=== PATIENT | female | born 1955 | race Caucasian/White ===

== ENCOUNTER 2019-07-10 09:48 | Emergency (ER) | payer BC ==
[2019-07-10 10:34] LABS: Absolute Lymphocytes (CBC) 0.6 K/uL (0.7-4.9); Basophils % 0.5 % (0-1.3); Hematocrit 38.3 % (36.0-45.0); Lymphocytes % 21.9 % (15.3-44.8); MPV 7.6 fL (7.6-11.3); RBC Red Blood Cell Count 4.41 M/uL (3.86-4.86)
[2019-07-10] MEDS ORDERED: ACETAMINOPHEN 325 MG TABLET ONE (10:38)
--- NOTE | 2019-07-10 10:47 | RAD REPORT ---
EXAM DESCRIPTION: RAD - Chest Pa And Lat (2 Views) - 07/10/2019 10:31 am CLINICAL HISTORY: cough, fever Chest pain. COMPARISON: CHEST SINGLE VIEW dated 05/26/2014; CHEST SINGLE VIEW dated 05/23/2013 FINDINGS: Mild reticular opacities are present bilaterally which may represent a viral pneumonitis o r bronchitis. No focal consolidation typical of pneumonia seen. The heart is normal in size. No displ aced fractures. Postop clips are seen right breast and right axilla.
[2019-07-10 11:02] LABS: ALT/SGPT 28 U/L (12-78); AST/SGOT 26 U/L (15-37); Albumin 3.6 g/dL (3.4-5.0); Alkaline Phosphatase 62 U/L (45-117); BUN Blood Urea Nitrogen 17 mg/dL (7-18); Bicarbonate 23 mmol/L (21-32); Bilirubin Total 0.3 mg/dL (0.2-1.0); Glucose Level 80 mg/dL (74-106); Potassium 4.7 mmol/L (3.5-5.1); Protein, Total 7.2 g/dL (6.4-8.2); Sodium Level 140 mmol/L (136-145); Troponin (Emerg Dept Use Only) < 0.02 ng/mL (0.0-0.045)
[2019-07-10 11:23] LABS: Urine White Blood Cell Casts OK
[2019-07-10 11:24] LABS: Anisocytosis 1+; Blood Morphology Comment NOTED (NOT SEEN); Platelet Estimate DECR
--- NOTE | 2019-07-10 12:18 | EDPHYS ---
Physician Documentation [facility] Name: Meg Ferrer Age: 64 yrs Sex: Female : 1955 Arrival Date: 07/10/2019 Time: 09:51 Bed 8 Private MD: ED Physician Tin Arshad HPI: 07/10 10:31 This 64 yrs old Female presents to ER via Ambulatory with complaints of jmm Congestion, Cough. 10:31 The patient or guardian reports cough. Onset: The symptoms/episode began/occurred jmm gradually, 2 week(s) ago. Modifying factors: The symptoms are alleviated by nothing. abx. Associated signs and symptoms: Pertinent positives: fever. Modifying factors: The patient symptoms are alleviated by the patient symptoms are aggravated by nothing. This is a 64 year old female with a history of liver transplant that presents to the ED with complaints cough, fever, congestion beginning 2 weeks ago. Symptoms were alleviated with amoxicillin, but have returned. Denies vomiting, denies abdominal pain. . Historical: - Allergies: 10:12 No Known Allergies; iw - Home Meds: 10:12 amlodipine 5 mg tab 1 tab once daily [Active]; gabapentin 800 mg oral tab 1 tab 3 times iw per day [Active]; Mavyret 100-40 mg [Active]; pantoprazole 40 mg oral TbEC 1 tab once daily [Active]; sertraline 50 mg oral tab 1 tab once daily [Active]; tacrolimus 1 mg oral cap every 12 hours [Active]; tramadol 50 mg Oral tab every 8 hours [Active]; trazodone 50 mg Oral tab nightly [Active]; - PMHx: 12:39 tachycardia; Hepatitis; Cirrhosis; esophageal varices; sg - PSHx: 10:12 esophageal scope; Tubal ligation; Liver transplant; Hernia repair; iw - Immunization history:: Adult Immunizations up to date. - Social history:: Smoking status: Patient reports the use of cigarette tobacco products, smokes one-half pack cigarettes per day. - Ebola Screening: : Patient negative for fever greater than or equal to 101.5 degrees Fahrenheit, and additional compatible Ebola Virus Disease symptoms Patient denies exposure to infectious person Patient denies travel to an Ebola-affected area in the 21 days before illness onset. ROS: 10:38 Abdomen/GI: Negative for abdominal pain, nausea, vomiting, diarrhea, and constipation, [facility] Back: Negative for injury and pain. 10:38 Constitutional: Positive for body aches, fever. 10:38 Respiratory: Positive for cough. 10:38 All other systems are negative. Exam: 10:38 Constitutional: This is a well developed, well nourished patient who is awake, alert, jmm and in no acute distress. Head/Face: atraumatic. Eyes: EOMI, no conjunctival erythema appreciated ENT: Moist Mucus Membranes Neck: Trachea midline, Supple Chest/axilla: Normal chest wall appearance and motion. Cardiovascular: Regular rate and rhythm. No edema appreciated Respiratory: Normal respirations, no respiratory distress appreciated Abdomen/GI: Non distended, soft Back: Normal ROM Skin: General appearance color normal MS/ Extremity: Moves all extremities, no obvious deformities appreciated, no edema noted to the lower extremities Neuro: Awake and alert, normal gait Psych: Behavior is normal, Mood is normal, Patient is cooperative and pleasant Vital Signs: 10:12 BP 128 / 73; Pulse 92; Resp 16; Temp 97.9; Pulse Ox 98% on R/A; Weight 56.7 kg; Height iw 5 ft. 2 in. (157.48 cm); Pain 5/10; 12:20 BP 124 / 72; Pulse 87; Resp 17; Temp 97.9; Pulse Ox 99% on R/A; Pain 3/10; sg 10:12 Body Mass Index 22.86 (56.70 kg, 157.48 cm) iw MDM: 10:07 Patient medically screened. [facility] 12:15 Data reviewed: vital signs, nurses notes. Counseling: I had a detailed discussion with [facility] the patient and/or guardian regarding: the historical points, exam findings, and any diagnostic results supporting the discharge/admit diagnosis, lab results, radiology results, the need for outpatient follow up, to return to the emergency department if symptoms worsen or persist or if there are any questions or concerns that arise at home. ED course: Patient is alert and non toxic in appearance in the ED. Patient will be covered with oral abx due to the patient's immunosupressed state as well as concerns for bacterial bronchitis. Patient advised to follow up with her pcp and is otherwise given strict return precautions. patient understood and agrees with the plan of care. . 07/10 09:54 Order name: Flu; Complete Time: 10:53 [facility] 07/10 09:54 Order name: Strep; Complete Time: 10:27 [facility] 07/10 10:11 Order name: CBC with Diff; Complete Time: 11:30 [facility] 07/10 10:11 Order name: CMP; Complete Time: 11:12 [facility] 07/10 10:11 Order name: Lactate; Complete Time: 10:52 [facility] 07/10 10:11 Order name: Procalcitonin; Complete Time: 11:12 [facility] 07/10 10:11 Order name: EKG - Nurse/Tech; Complete Time: 11:03 [facility] 07/10 10:11 Order name: Saline Lock; Complete Time: 10:29 [facility] 07/10 10:11 Order name: Troponin (emerg Dept Use Only); Complete Time: 11:12 [facility] 07/10 10:12 Order name: Chest Pa And Lat (2 Views) XRAY; Complete Time: 10:52 [facility] 07/10 10:25 Order name: Throat Culture [facility] 07/10 10:44 Order name: CBC Smear Scan; Complete Time: 11:30 EDMS Administered Medications: 10:45 Drug: Tylenol 650 mg Route: PO; sg Disposition: 15:13 Co-signature as Attending Physician, Tin Arshad MD. rn Disposition: 07/10/19 12:17 Discharged to Home. Impression: Acute bronchitis. - Condition is Stable. - Discharge Instructions: Acute Bronchitis, Adult. - Prescriptions for Levaquin 750 mg Oral Tablet - take 1 tablet by ORAL route once daily for 10 days; 10 tablet. promethazine- DM - take 5 milliliter by ORAL route every 4-6 hours; 120 milliliter. - Medication Reconciliation Form, Thank You Letter, Antibiotic Education, Prescription Opioid Use form. - Follow up: Private Physician; When: 2 - 3 days; Reason: Recheck today's complaints, Continuance of care, Re-evaluation by your physician. Signatures: Dispatcher [employer] EDMerritt Salmon RN RN sg Mickail, Joel, PA PA jmm Williams, Irene, RN RN iw Nieto, Roman, MD MD diesel service journeyman: (The following items were deleted from the chart) 12:31 12:17 07/10/2019 12:17 Discharged to Home. Impression: Acute bronchitis. Condition is iw Stable. Forms are Medication Reconciliation Form, Thank You Letter, Antibiotic Education, Prescription Opioid Use. Follow up: Private Physician; When: 2 - 3 days; Reason: Recheck today's complaints, Continuance of care, Re-evaluation by your physician. samuel
--- NOTE | 2019-07-10 12:18 | ER ---
Nurse's Notes [facility] Name: Meg Ferrer Age: 64 yrs Sex: Female : 1955 Arrival Date: 07/10/2019 Time: 09:51 Bed 8 Private MD: Diagnosis: Acute bronchitis Presentation: 07/10 10:03 Presenting complaint: Patient states: cough, chest congestion X 1 week, also has body iw aches and fever yesterday. Transition of care: patient was not received from another setting of care. Onset of symptoms was July 03, 2019. Risk Assessment: Do you want to hurt yourself or someone else? Patient reports no desire to harm self or others. Initial Sepsis Screen: Does the patient meet any 2 criteria? No. Patient's initial sepsis screen is negative. Does the patient have a suspected source of infection? No. Patient's initial sepsis screen is negative. Care prior to arrival: None. 10:03 Method Of Arrival: Ambulatory iw 10:03 Acuity: AVINASH 3 iw Historical: - Allergies: 10:12 No Known Allergies; iw - Home Meds: 10:12 amlodipine 5 mg tab 1 tab once daily [Active]; gabapentin 800 mg oral tab 1 tab 3 times iw per day [Active]; Mavyret 100-40 mg [Active]; pantoprazole 40 mg oral TbEC 1 tab once daily [Active]; sertraline 50 mg oral tab 1 tab once daily [Active]; tacrolimus 1 mg oral cap every 12 hours [Active]; tramadol 50 mg Oral tab every 8 hours [Active]; trazodone 50 mg Oral tab nightly [Active]; - PMHx: 12:39 tachycardia; Hepatitis; Cirrhosis; esophageal varices; sg - PSHx: 10:12 esophageal scope; Tubal ligation; Liver transplant; Hernia repair; iw - Immunization history:: Adult Immunizations up to date. - Social history:: Smoking status: Patient reports the use of cigarette tobacco products, smokes one-half pack cigarettes per day. - Ebola Screening: : Patient negative for fever greater than or equal to 101.5 degrees Fahrenheit, and additional compatible Ebola Virus Disease symptoms Patient denies exposure to infectious person Patient denies travel to an Ebola-affected area in the 21 days before illness onset. Screenin:12 Abuse screen: Denies threats or abuse. Denies injuries from another. Nutritional sg screening: No deficits noted. Tuberculosis screening: No symptoms or risk factors identified. Never had TB. Fall Risk None identified. Assessment: 10:12 General: Appears in no apparent distress. well groomed, well developed, well nourished, sg Behavior is calm, cooperative, appropriate for age. Pain: Denies pain. Neuro: Level of Consciousness is awake, alert, obeys commands, Oriented to person, place, time, Housekeeping Assistant are equal bilaterally Speech is normal, Facial symmetry appears normal. Cardiovascular: Capillary refill is brisk in bilateral fingers Patient's skin is warm and dry. Chest pain is denied. Respiratory: Airway is patent Respiratory effort is even, unlabored, Respiratory pattern is regular, symmetrical, Breath sounds are coarse. GI: Abdomen is round non-distended. : No signs and/or symptoms were reported regarding the genitourinary system. EENT: No signs and/or symptoms were reported regarding the EENT system. Derm: Skin is pink, warm \T\ dry. Musculoskeletal: Circulation, motion, and sensation intact. Range of motion: intact in all extremities. Vital Signs: 10:12 BP 128 / 73; Pulse 92; Resp 16; Temp 97.9; Pulse Ox 98% on R/A; Weight 56.7 kg; Height iw 5 ft. 2 in. (157.48 cm); Pain 5/10; 12:20 BP 124 / 72; Pulse 87; Resp 17; Temp 97.9; Pulse Ox 99% on R/A; Pain 3/10; sg 10:12 Body Mass Index 22.86 (56.70 kg, 157.48 cm) ED Course: 09:51 Patient arrived in ED. mr 09:53 Fracisco Mendez PA is PHCP. jmm 09:53 Tin Arshad MD is Attending Physician. [facility] 10:00 Flu and/or RSV swab sent to lab. Strep swab sent to lab. sg 10:04 Triage completed. iw 10:14 Arm band placed on. iw 10:20 Patient has correct armband on for positive identification. Bed in low position. Call sg light in reach. Pulse ox on. NIBP on. 10:20 Initial lab(s) drawn, by me, sent to lab. Inserted saline lock: 20 gauge in right sg forearm, using aseptic technique. Blood collected. 10:30 Chest Pa And Lat (2 Views) XRAY In Process Unspecified. EDMS 10:50 Merritt Hills, RN is Primary Nurse. sg 11:16 EKG done, by donor center technician. reviewed by Fracisco RUDOLPH. at1 12:25 No provider procedures requiring assistance completed. IV discontinued, intact, sg bleeding controlled, No redness/swelling at site. Pressure dressing applied. Administered Medications: 10:45 Drug: Tylenol 650 mg Route: PO; sg Outcome: 12:17 Discharge ordered by . jmabdirahman 12:25 Discharged to home ambulatory, with family. sg 12:25 Condition: good 12:25 Discharge instructions given to patient, Instructed on discharge instructions, follow up and referral plans. medication usage, safety practices, Demonstrated understanding of instructions, follow-up care, Prescriptions given X 2, promethazine and levaquin 12:31 Patient left the ED. iw Signatures: Dispatcher [employer] EDMS Merritt Hills, RN RN Fracisco Chavez PA PA jmm Rivera, Mary mr Williams, Irene, RN RN iw Gonzales, Amanda, bow stapler EKG Tat1
[2019-07-10 12:37] VITALS: BP 128/73; TEMP 97.9; O2SAT 98
--- NOTE | 2019-07-11 14:33 | EKG ---
Test Date: 2019-07-10 Test Time: 10:59:51 Textile Machinery Sales Representative: LÓPEZ MEASUREMENT RESULTS: Intervals: Rate: 75 NC: 156 QRSD: 86 QT: 404 QTc: 451 [place]: P: 51 NC: 156 QRS: 66 T: 74 INTERPRETIVE STATEMENTS: Normal sinus rhythm Normal ECG Compared to ECG 05/26/2014 13:52:11 No significant changes Electronically Signed On 07-11-19 14:31:32 AUTO INSPECTOR by Matthieu He
== END 2019-07-10 12:31 | disposition home or self-care (01) ==
LOC: ER 09:48
DX: J20.9 Acute bronchitis, unspecified (principal); K74.60 Unspecified cirrhosis of liver; F17.210 Nicotine dependence, cigarettes, uncomplicated; Z94.4 Liver transplant status
CPT/HCPCS: 36415; 71046; 80053; 83605; 84145; 84484; 85025; 87070; 87081; 87804; 93005; 99284

== ENCOUNTER 2020-09-28 10:02 | Emergency (ER) | payer BC, SELFPAY ==
[2020-09-28 11:27] LABS: Absolute Lymphocytes (CBC) 0.7 K/uL (0.7-4.9); Basophils % 0.8 % (0-1.3); Lymphocytes % 15.5 % (15.3-44.8); MPV 7.3 fL (7.6-11.3); RBC Red Blood Cell Count 4.51 M/uL (3.86-4.86)
[2020-09-28] MEDS ORDERED: MORPHINE 4 MG/ML SYR ONE (11:42)
[2020-09-28] MEDS ORDERED: ONDANSETRON 4 MG/2 ML VIAL ONE (11:42)
[2020-09-28 11:55] LABS: Albumin 4.2 g/dL (3.4-5.0); Bilirubin Direct 0.1 mg/dL (0-0.2); Bilirubin Total 0.3 mg/dL (0.2-1.0); Protein, Total 8.3 g/dL (6.4-8.2)
[2020-09-28 12:04] LABS: Potassium 4.3 mmol/L (3.5-5.1)
[2020-09-28] MEDS ORDERED: NA CHLORIDE 0.9% 1,000 ML ONE (12:27)
--- NOTE | 2020-09-28 13:01 | RAD REPORT ---
EXAM DESCRIPTION: CT - Abdomen Pelvis W Contrast - 09/28/2020 12:43 pm CLINICAL HISTORY: diarrhea;Abd pain History of liver cancer and cirrhosis with liver transplant COMPARISON: No comparisons TECHNIQUE: Biphasic, helical CT imaging of the abdomen and pelvis was performed following 100 ml non -ionic IV contrast. No oral contrast administered. All CT scans are performed using dose optimization technique as appropriate and may include automated exposure control or mA/KV adjustment according to patient size. FINDINGS: No suspicious findings in the lung bases. The liver appears enlarged ; however, there is no prior imaging to evaluate the baseline appearance o f the liver at the time of transplant. No focal or suspicious lesion of the liver parenchyma. No port al vein thrombus. Spleen is upper normal in size. No acute pancreatic process. Gallbladder is absent. Intrahepatic and extrahepatic biliary tree dilatation noted. Again, baseline appearance for the patient is unknown. Th is could be the reservoir effect that occur is when the gallbladder has been removed. Common duct sto krysta can be occult. No duodenal or pancreatic mass identifiable. Correlation is needed with any clinic al or laboratory findings suggesting biliary obstruction. Symmetric renal function is seen with no hydronephrosis or suspicious renal mass. No pyelonephritis o r acute parenchymal process. Fullness of the left collecting system is present but not believed to be obstruction. No adrenal abnormalities. Mostly contracted urinary bladder shows no suspicious finding . Prominent enhancing veins seen adjacent to a normal for age sized uterus. No suspicion for an ovari an abnormality. Clarke of the fundus and body of the stomach are prominent due to absent content. This is probably per istalsis affect rather than gastric wall mass or thickening. No duodenal acute finding. Small bowels are prominent and fluid-filled. There is mild enhancement of the small bowel clarke. Nonobstructive en teritis would be a primary consideration. Appendix is normal. No dilated colon or colon wall thickeni ng or mass identifiable. No free air or pneumatosis. There is a small amount of free fluid within the peritoneal cavity. No m ass or bulky lymphadenopathy. Soft tissue nodularity in the subcutaneous fat near the umbilicus is pr obably postsurgical change. No suspicious bony findings. Degenerative changes are present. IMPRESSION: No bowel obstruction, free air or surgically emergent finding. Prominent bowel loops without obstruction or mass. Small amount of free intraperitoneal fluid is pres ent. Findings may reflect a nonspecific gastroenteritis. Liver appears enlarged but the baseline appearance after transplant is not known. No suspicious liver parenchymal lesion and no portal vein thrombus. Biliary tree dilatation with baseline appearance on known. This is probably the reservoir effect give n the absence of the gallbladder. Correlation is needed with any clinical or laboratory findings for biliary obstruction.
--- NOTE | 2020-09-28 14:34 | ER ---
Nurse's Notes [facility] Name: Meg Ferrer Age: 65 yrs Sex: Female : 1955 Arrival Date: 09/28/2020 Time: 10:05 Bed 23 Private MD: Diagnosis: Nausea and vomiting;Diarrhea, unspecified;Gastroenteritis Presentation: 09/28 10:09 Chief complaint: Patient states: diarrhea for months now, gradually getting worse, ca1 feeling weak and tired. Vomiting x 3 days. Reports abdl pain and cramping. Denies fever. Coronavirus screen: Client denies travel out of the [place] in the last 14 days. diarrhea, nausea, vomiting. Client presents with at least one sign or symptom that may indicate coronavirus-19. Standard/surgical mask placed on the client. Provider contacted for isolation considerations. Ebola Screen: Patient negative for fever greater than or equal to 101.5 degrees Fahrenheit, and additional compatible Ebola Virus Disease symptoms Patient denies exposure to infectious person. Patient denies travel to an Ebola-affected area in the 21 days before illness onset. No symptoms or risks identified at this time. Initial Sepsis Screen: Does the patient meet any 2 criteria? No. Patient's initial sepsis screen is negative. Does the patient have a suspected source of infection? No. Patient's initial sepsis screen is negative. Risk Assessment: Do you want to hurt yourself or someone else? Patient reports no desire to harm self or others. Onset of symptoms was September 28, 2020. 10:09 Method Of Arrival: Ambulatory ca1 10:09 Acuity: AVINASH 3 ca1 Triage Assessment: 10:24 General: Appears in no apparent distress. comfortable, Behavior is calm, cooperative, ca1 appropriate for age. Pain: Complains of pain in abdomen Pain currently is 5 out of 10 on a pain scale. Quality of pain is described as crampy, Pain began 2-3 days ago. Is intermittent. EENT: No signs and/or symptoms were reported regarding the EENT system. Neuro: Level of Consciousness is awake, alert, obeys commands, Oriented to person, place, time, situation. Cardiovascular: Heart tones S1 S2 present Capillary refill < 3 seconds Patient's skin is warm and dry. Respiratory: Airway is patent Respiratory effort is even, unlabored, Respiratory pattern is regular, symmetrical, Breath sounds are clear bilaterally. GI: Abdomen is flat, non-distended, Bowel sounds present X 4 quads. Abd is soft X 4 quads Abdomen is tender to palpation X 4 quads. Reports diarrhea, nausea, vomiting. : Derm: Skin is intact, is healthy with good turgor, Skin is pink, warm \T\ dry. Musculoskeletal: Circulation, motion, and sensation intact. Capillary refill < 3 seconds. Historical: - Allergies: 10:24 No Known Allergies; ca1 - PMHx: 10:24 Cirrhosis; esophageal varices; Hepatitis; Tachycardia; liver Ca; Hypertension; ca1 - PSHx: 10:24 esophageal scope; Tubal ligation; Liver transplant; Hernia repair; ca1 - Immunization history:: Adult Immunizations not up to date, Flu vaccine is not up to date. - Social history:: Smoking status: Patient reports the use of cigarette tobacco products, denies chronic smoking, but will smoke occasionally. Screenin:26 Abuse screen: Denies threats or abuse. Denies injuries from another. Nutritional ca1 screening: No deficits noted. Tuberculosis screening: No symptoms or risk factors identified. Fall Risk IV access (20 points). Assessment: 10:26 Reassessment: see triage notes. GI: Abdomen is flat, non-distended, Bowel sounds ca1 present X 4 quads. Abd is soft X 4 quads Abdomen is tender to palpation X 4 quads. 11:28 Reassessment: Patient appears in no apparent distress at this time. Patient is alert, ca1 oriented x 3, equal unlabored respirations, skin warm/dry/pink. Pt BM x 3. reports nausea. Notified Dr. Upton, meds ordered and given. 12:30 Reassessment: Patient appears in no apparent distress at this time. Patient and/or ca1 family updated on plan of care and expected duration. Pain level reassessed. Patient is alert, oriented x 3, equal unlabored respirations, skin warm/dry/pink. 13:12 Reassessment: Patient appears in no apparent distress at this time. Patient and/or ca1 family updated on plan of care and expected duration. Pain level reassessed. Patient is alert, oriented x 3, equal unlabored respirations, skin warm/dry/pink. Vital Signs: 10:09 BP 135 / 79; Pulse 93; Resp 16 S; Temp 98(O); Pulse Ox 100% on R/A; Weight 52.62 kg ca1 (R); Height 5 ft. 3 in. (160.02 cm) (R); Pain 5/10; 11:28 BP 142 / 86; Pulse 90; Resp 16 S; Pulse Ox 100% on R/A; ca1 12:30 BP 141 / 81; Pulse 89; Resp 16 S; Pulse Ox 100% on R/A; ca1 10:09 Body Mass Index 20.55 (52.62 kg, 160.02 cm) ca1 ED Course: 10:05 Patient arrived in ED. as 10:21 Gabrielle Ceja, GIORGI is Primary Nurse. ca1 10:22 Ga Upton MD is Attending Physician. kdr 10:23 Triage completed. ca1 10:24 Arm band placed on right wrist. ca1 10:26 Patient has correct armband on for positive identification. Placed in gown. Bed in low ca1 position. Call light in reach. Side rails up X2. Pulse ox on. NIBP on. Warm blanket given. 11:05 Lab(s) recollected, by me, sent to lab. Inserted saline lock: 22 gauge in left wrist, kj1 using aseptic technique. Blood collected. 12:43 CT Abd/Pelvis - IV Contrast Only In Process Unspecified. EDMS 13:16 Fracisco Mendez PA is PHCP. [facility] 14:32 Fredo Santillan MD is Referral Physician. kdr 14:55 No provider procedures requiring assistance completed. IV discontinued, intact, aa5 bleeding controlled, No redness/swelling at site. Pressure dressing applied. Administered Medications: 11:25 Drug: Zofran (Ondansetron) 4 mg Route: IVP; Site: left forearm; ca1 12:10 Follow up: Response: No adverse reaction; Nausea is decreased ca1 11:28 Drug: morphine 4 mg {Note: rass 0.} Route: IVP; Site: right forearm; ca1 12:10 Follow up: Response: No adverse reaction; Pain is decreased; RASS: Alert and Calm (0) ca1 12:10 Drug: NS 0.9% 1000 ml Route: IV; Rate: 1 bolus; Site: left forearm; ca1 Outcome: 14:33 Discharge ordered by . kdr 14:55 Discharged to home ambulatory. aa5 14:55 Condition: stable 14:55 Discharge instructions given to patient, Instructed on discharge instructions, follow up and referral plans. medication usage, Demonstrated understanding of instructions, follow-up care, medications, Prescriptions given X 2. 14:58 Patient left the ED. aa5 Signatures: Dispatcher [employer] EDMS Ga Upton MD MD kdr Mickail, Joel, PA PA jmm Martinez, Amelia as Calderon, Audri, RN RN aa5 Gabrielle Ceja RN RN ca1 Jackson, Kandis 1
--- NOTE | 2020-09-28 14:34 | EDPHYS ---
Physician Documentation [facility] Name: Meg Ferrer Age: 65 yrs Sex: Female : 1955 Arrival Date: 09/28/2020 Time: 10:05 Bed 23 Private MD: ED Physician Ga Upton HPI: 09/28 15:09 This 65 yrs old Female presents to ER via Ambulatory with complaints of kdr Vomiting/Diarrhea, Abd Pain > 50 y/o. 15:09 The patient presents to the emergency department with nausea, that is mild, that is kdr moderate, vomiting, that is intermittent, diarrhea, that is intermittent, abdominal pain, of the abdomen diffusely, described as achy, dull, waxing and waning. Onset: The symptoms/episode began/occurred gradually, Diarrhea has been ongoing for several months but the vomiting. Historical: - Allergies: 10:24 No Known Allergies; ca1 - PMHx: 10:24 Cirrhosis; esophageal varices; Hepatitis; Tachycardia; liver Ca; Hypertension; ca1 - PSHx: 10:24 esophageal scope; Tubal ligation; Liver transplant; Hernia repair; ca1 - Immunization history:: Adult Immunizations not up to date, Flu vaccine is not up to date. - Social history:: Smoking status: Patient reports the use of cigarette tobacco products, denies chronic smoking, but will smoke occasionally. ROS: 15:52 Constitutional: Negative for fever, chills, and weight loss, Eyes: Negative for injury, kdr pain, redness, and discharge, ENT: Negative for injury, pain, and discharge, Neck: Negative for injury, pain, and swelling, Cardiovascular: Negative for chest pain, palpitations, and edema, Respiratory: Negative for shortness of breath, cough, wheezing, and pleuritic chest pain, Back: Negative for injury and pain, : Negative for injury, bleeding, discharge, and swelling, MS/Extremity: Negative for injury and deformity, Skin: Negative for injury, rash, and discoloration, Neuro: Negative for headache, weakness, numbness, tingling, and seizure activity. Psych: Negative for depression, anxiety, suicide ideation, homicidal ideation, and hallucinations, Allergy/Immunology: Negative for hives, rash, and allergies, Endocrine: Negative for neck swelling, polydipsia, polyuria, polyphagia, and marked weight changes, Hematologic/Lymphatic: Negative for swollen nodes, abnormal bleeding, and unusual bruising. 15:52 Abdomen/GI: Positive for nausea, vomiting, and diarrhea. Exam: 15:52 Constitutional: This is a well developed, well nourished patient who is awake, alert, kdr and in no acute distress. Head/Face: Normocephalic, atraumatic. Eyes: Pupils equal round and reactive to light, extra-ocular motions intact. Lids and lashes normal. Conjunctiva and sclera are non-icteric and not injected. Cornea within normal limits. Periorbital areas with no swelling, redness, or edema. Neck: Trachea midline, no thyromegaly or masses palpated, and no cervical lymphadenopathy. Supple, full range of motion without nuchal rigidity, or vertebral point tenderness. No Meningismus. Chest/axilla: Normal chest wall appearance and motion. Nontender with no deformity. No lesions are appreciated. Cardiovascular: Regular rate and rhythm with a normal S1 and S2. No gallops, murmurs, or rubs. Normal PMI, no JVD. No pulse deficits. Respiratory: Lungs have equal breath sounds bilaterally, clear to auscultation and percussion. No rales, rhonchi or wheezes noted. No increased work of breathing, no retractions or nasal flaring. Back: No spinal tenderness. No costovertebral tenderness. Full range of motion. Skin: Warm, dry with normal turgor. Normal color with no rashes, no lesions, and no evidence of cellulitis. MS/ Extremity: Pulses equal, no cyanosis. Neurovascular intact. Full, normal range of motion. Neuro: Awake and alert, GCS 15, oriented to person, place, time, and situation. Cranial nerves II-XII grossly intact. Motor strength 5/5 in all extremities. Sensory grossly intact. Cerebellar exam normal. Normal gait. Psych: Awake, alert, with orientation to person, place and time. Behavior, mood, and affect are within normal limits. 15:52 Abdomen/GI: Inspection: abdomen appears normal, Bowel sounds: active. Vital Signs: 10:09 BP 135 / 79; Pulse 93; Resp 16 S; Temp 98(O); Pulse Ox 100% on R/A; Weight 52.62 kg ca1 (R); Height 5 ft. 3 in. (160.02 cm) (R); Pain 5/10; 11:28 BP 142 / 86; Pulse 90; Resp 16 S; Pulse Ox 100% on R/A; ca1 12:30 BP 141 / 81; Pulse 89; Resp 16 S; Pulse Ox 100% on R/A; ca1 10:09 Body Mass Index 20.55 (52.62 kg, 160.02 cm) ca1 MDM: 14:33 Patient medically screened. kdr 15:59 Data reviewed: vital signs, nurses notes, lab test result(s), radiologic studies. kdr Counseling: I had a detailed discussion with the patient and/or guardian regarding: the historical points, exam findings, and any diagnostic results supporting the discharge/admit diagnosis, lab results, radiology results, the need for outpatient follow up. 09/28 10:50 Order name: Basic Metabolic Panel ca1 09/28 10:50 Order name: CBC with Diff ca1 09/28 10:50 Order name: Hepatic Function ca1 09/28 10:50 Order name: Lipase ca1 09/28 10:51 Order name: Basic Metabolic Panel; Complete Time: 12:23 EDPA 09/28 10:51 Order name: CBC with Automated Diff; Complete Time: 12:23 EDMS 09/28 10:51 Order name: Liver (Hepatic) Function; Complete Time: 12:23 EDMS 09/28 10:51 Order name: Lipase; Complete Time: 12:23 EDMS 09/28 12:23 Order name: Stool Culture [facility] 09/28 12:23 Order name: Ova And Parasites kdr 09/28 12:23 Order name: Occult Blood; Complete Time: 16:02 kdr 09/28 12:23 Order name: Fecal Leukocyte Stain; Complete Time: 16:02 kdr 09/28 12:24 Order name: Stool Culture EDPA 09/28 12:24 Order name: Ova and Parasites EDPA 09/28 10:50 Order name: IV Saline Lock; Complete Time: 11:12 ca1 09/28 10:50 Order name: Labs collected and sent; Complete Time: 11:12 ca1 09/28 12:25 Order name: CT Abd/Pelvis - IV Contrast Only; Complete Time: 13:14 kdr Administered Medications: 11:25 Drug: Zofran (Ondansetron) 4 mg Route: IVP; Site: left forearm; ca1 12:10 Follow up: Response: No adverse reaction; Nausea is decreased ca1 11:28 Drug: morphine 4 mg {Note: rass 0.} Route: IVP; Site: right forearm; ca1 12:10 Follow up: Response: No adverse reaction; Pain is decreased; RASS: Alert and Calm (0) ca1 12:10 Drug: NS 0.9% 1000 ml Route: IV; Rate: 1 bolus; Site: left forearm; ca1 Disposition: 09/28/20 14:33 Discharged to Home. Impression: Nausea and vomiting, Diarrhea, unspecified, Gastroenteritis. - Condition is Stable. - Discharge Instructions: Nausea and Vomiting, Adult, [id number], Abdominal Pain, Adult, [id number], Diarrhea, Adult, [id number]. - Prescriptions for Zofran 4 mg Oral Tablet - take 1 tablet by ORAL route every 4-6 hours As needed; 16 tablet. Lomotil 2.5- 0.025 mg Oral Tablet - take 1 tablet by ORAL route every 6 hours As needed; 20 tablet. Tramadol 50 mg Oral Tablet - take 1 tablet by ORAL route every 8 hours as needed; 12 tablet. - Medication Reconciliation Form, Thank You Letter form. - Follow up: Private Physician; When: 2 - 3 days; Reason: If symptoms return, Further diagnostic work-up, Recheck today's complaints, Continuance of care, Re-evaluation by your physician. Follow up: Fredo Santillan MD; When: 2 - 3 days; Reason: If symptoms return, Further diagnostic work-up, Recheck today's complaints, Continuance of care, Re-evaluation by your physician. - Problem is an ongoing problem. - Symptoms have improved. Signatures: Dispatcher [employer] EDPA Ga Upton MD MD [facility] Nadine Alberts RN RN aa5 Gabrielle Ceja RN RN ca1 Corrections: (The following items were deleted from the chart) 14:58 14:33 09/28/2020 14:33 Discharged to Home. Impression: Nausea and vomiting; Diarrhea, aa5 unspecified; Gastroenteritis. Condition is Stable. Forms are Medication Reconciliation Form, Thank You Letter, Antibiotic Education, Prescription Opioid Use. Follow up: Private Physician; When: 2 - 3 days; Reason: If symptoms return, Further diagnostic work-up, Recheck today's complaints, Continuance of care, Re-evaluation by your physician. Follow up: Fredo Santillan; When: 2 - 3 days; Reason: If symptoms return, Further diagnostic work-up, Recheck today's complaints, Continuance of care, Re-evaluation by your physician. Problem is an ongoing problem. Symptoms have improved. kdr
[2020-09-28 15:06] VITALS: TEMP 98; O2SAT 100
[2020-09-28 15:08] VITALS: BP 141/81
== END 2020-09-28 14:58 | disposition home or self-care (01) ==
LOC: ER 10:02
DX: K52.9 Noninfective gastroenteritis and colitis, unspecified (principal); K74.60 Unspecified cirrhosis of liver; F17.210 Nicotine dependence, cigarettes, uncomplicated; I10 Essential (primary) hypertension; Z85.05 Personal history of malignant neoplasm of liver; Z94.4 Liver transplant status
CPT/HCPCS: 87045; 85025; 80048; 36415; 89055; 87177; 82274; 80076; 87046; 87209; 83690; 74177; Q9967; J7030; J2405; 99284

== ENCOUNTER → 2023-09-03 | Emergency (ER) | payer OTHER ==
[~2023-09-03] MED LIST: HYDROCODONE/APAP 7.5/325 MG TAB ONE
--- NOTE | 2023-09-03 16:46 | RAD REPORT ---
EXAM DESCRIPTION: RAD - Ribs Left - 09/03/2023 3:45 pm CLINICAL HISTORY: PAIN COMPARISON: Chest Pa And Lat (2 Views) dated 07/10/2019 TECHNIQUE: Left ribs, 3 views. FINDINGS: No displaced rib fracture is evident. No aggressive rib lesion. No underlying pneumothorax, effusion, infiltrate or pulmonary contusion. IMPRESSION: Negative left rib series.
--- NOTE | 2023-09-03 16:50 | EDPHYS ---
Physician Documentation [facility] Name: Meg Ferrer Age: 68 yrs Sex: Female : 1955 Arrival Date: 09/03/2023 Time: 14:12 Bed 12 Private MD: Sharron Silva ED Physician Eric Zambrano HPI: 09/02 14:45 This 68 yrs old Female presents to ER via Ambulatory with complaints of Fall Injury. sb4 14:45 Patient states that yesterday she fell and hit her left side on a metal table. She sb4 complains of pain and bruising to her upper left ribs. States any movement or breath hurts. Denies any other trauma. Has not taken anything for the pain today. Historical: - Allergies: 14:41 No Known Drug Allergies; ph - Home Meds: 17:00 amlodipine 5 mg tab 1 tab once daily [Active]; gabapentin 800 mg Oral tab 1 tab 3 times tl4 per day [Active]; tacrolimus 5 mg oral capsule 2 caps every 12 hours [Active]; Mavyret 100-40 mg [Active]; - PMHx: 14:41 Cirrhosis; esophageal varices; Hepatitis; Hypertension; LIVER CA; Tachycardia; ph - Immunization history:: Adult Immunizations unknown. - Social history:: Smoking status: Patient reports the use of cigarette tobacco products, denies chronic smoking, but will smoke occasionally. ROS: 14:45 Constitutional: Negative for fever, chills, and weight loss, sb4 14:45 MS/extremity: Positive for pain, of the left lateral anterior chest, 14:45 All other systems are negative, Exam: 14:45 Constitutional: This is a well developed, well nourished patient who is awake, alert, sb4 and in no acute distress. Head/Face: Normocephalic, atraumatic. Eyes: Extra-ocular motions intact. Periorbital areas with no swelling, redness, or edema. ENT: Mucous membranes moist. Cardiovascular: Regular rate and rhythm with a normal S1 and S2. Respiratory: Lungs have equal breath sounds bilaterally, clear to auscultation and percussion. No rales, rhonchi or wheezes noted. No increased work of breathing, no retractions or nasal flaring. Abdomen/GI: Soft, non-tender, no distension. Skin: Warm, dry with normal turgor. Normal color with no rashes, no lesions, and no evidence of cellulitis. MS/ Extremity: Pulses equal, no cyanosis. Neurovascular intact. Full, normal range of motion. Neuro: Awake and alert, GCS 15, oriented to person, place, time, and situation. Motor strength 5/5 in all extremities. Sensory grossly intact. 14:45 Chest/axilla: Inspection: ecchymosis, that is mild, of the left lateral anterior chest Palpation: tenderness, that is moderate, of the left lateral anterior chest, that totally reproduces the patient's complaints, Vital Signs: 14:38 BP 156 / 97; Pulse 83; Resp 18; Temp 97; Pulse Ox 98% on R/A; Weight 56.7 kg; Height 5 ph ft. 2 in. ; 15:06 BP 172 / 95; Pulse 82; Resp 18; Pulse Ox 100% on R/A; Pain 9/10; tl4 17:04 BP 164 / 97; Pulse 94; Resp 16; Temp 97.3(TE); Pulse Ox 100% on R/A; Pain 6/10; tl4 14:38 Body Mass Index 22.86 (56.70 kg, 157.48 cm) ph 15:06 Pain Scale: Adult tl4 17:04 Pain Scale: Adult tl4 [place] Coma Score: 15:06 Eye Response: spontaneous(4). Motor Response: obeys commands(6). Verbal Response: tl4 oriented(5). Total: 15. MDM: 14:44 Patient medically screened. sb4 14:45 Differential diagnosis: contusion, fracture. sb4 16:49 Data reviewed: vital signs, nurses notes, radiologic studies, and as a result, I will sb4 discharge patient. Counseling: I had a detailed discussion with the patient and/or guardian regarding the historical points, exam findings, and any diagnostic results supporting the discharge/admit diagnosis, radiology results, to return to the emergency department if symptoms worsen or persist or if there are any questions or concerns that arise at home. 09/02 14:45 Order name: Ribs Left XRAY; Complete Time: 16:47 sb4 Administered Medications: 14:59 Drug: Hydrocodone-Acetaminophen PO (7.5 mg-325 mg) 1 tabs PO once Route: PO; tl4 16:44 Follow up: Response: No adverse reaction; Pain is decreased tl4 Disposition Summary: 09/03/23 16:50 Discharge Ordered Notes: Location: Home sb4 Problem: new sb4 Symptoms: have improved sb4 Condition: Stable sb4 Diagnosis - rib contusion sb4 Followup: sb4 - With: Emergency Department - When: As needed - Reason: Trouble breathing, Worsening of condition Discharge Instructions: - Discharge Summary Sheet sb4 - Rib Contusion sb4 Forms: - Thank You Letter sb4 - Prescription Opioid Use sb4 - Patient Portal Instructions sb4 - Leadership Thank You Letter sb4 Prescriptions: - Tramadol 50 mg Oral Tablet - take 1 tablet ORAL route every 8 hours as needed; 12 tablet; Refills: 0, sb4 Product Selection Permitted Addendum: 09/04/2023 18:59 I was immediately available for consultation during this patient's visit. I did not e c2 personally see the patient or discuss the patient with the REBECCA. . Signatures: Dispatcher [employer] Lucie Wallace RN RN Shona Pickens PA-C PA-C sb4 Eric Zambrano MD MD ec2 Daniel Rodriguez RN RN tl4
--- NOTE | 2023-09-03 16:50 | ER ---
Nurse's Notes [facility] Name: Meg Ferrer Age: 68 yrs Sex: Female : 1955 Arrival Date: 09/03/2023 Time: 14:12 Bed 12 Private MD: Sharron Silva Diagnosis: rib contusion Presentation: 09/02 14:38 Chief complaint: Patient states: Slipped at work last night and hit L ribs on a metal ph table, c/o L rib pain. Coronavirus screen: Vaccine status: Patient reports receiving the 2nd dose of the covid vaccine. Ebola Screen: No symptoms or risks identified at this time. Initial Sepsis Screen: Does the patient meet any 2 criteria? No. Patient's initial sepsis screen is negative. Does the patient have a suspected source of infection? No. Patient's initial sepsis screen is negative. Risk Assessment: Do you want to hurt yourself or someone else? Patient reports no desire to harm self or others. 14:38 Method Of Arrival: Ambulatory ph 14:38 Acuity: AVINASH 4 ph 15:08 Onset of symptoms was September 02, 2023. tl4 Triage Assessment: 14:42 General: Appears in no apparent distress. Behavior is calm, cooperative. Pain: ph Complains of pain in left lateral posterior chest and left lateral anterior chest. Neuro: Level of Consciousness is awake, alert, obeys commands, Oriented to person, place, time, situation. Musculoskeletal: Circulation, motion, and sensation intact. Range of motion: intact in all extremities. Historical: - Allergies: 14:41 No Known Drug Allergies; ph - Home Meds: 17:00 amlodipine 5 mg tab 1 tab once daily [Active]; gabapentin 800 mg Oral tab 1 tab 3 times tl4 per day [Active]; tacrolimus 5 mg oral capsule 2 caps every 12 hours [Active]; Mavyret 100-40 mg [Active]; - PMHx: 14:41 Cirrhosis; esophageal varices; Hepatitis; Hypertension; LIVER CA; Tachycardia; ph - Immunization history:: Adult Immunizations unknown. - Social history:: Smoking status: Patient reports the use of cigarette tobacco products, denies chronic smoking, but will smoke occasionally. Screenin:07 [facility] ED Fall Risk Assessment (Adult) History of falling in the last 3 months, tl4 including since admission Yes- single mechanical fall (1 pt) Confusion or Disorientation No (0 pts) Intoxicated or Sedated No (0 pts) Impaired Gait No (0 pts) Mobility Assist Device Used No (0 pt) Altered Elimination No (0 pt) Score/Fall Risk Level 0 - 2 = Low Risk Oriented to surroundings, Maintained a safe environment, Educated pt \T\ family on fall prevention, incl call for assistance when getting out of bed, Assessed \T\ reinforced patient's understanding of fall precautions, Hourly rounding (assess needs \T\ fall precautionary measures) done, Used ambulatory aids as needed (educated on \T\ assisted with), Used gait belt as appropriate. Abuse screen: Denies threats or abuse. Denies injuries from another. Nutritional screening: No deficits noted. Tuberculosis screening: No symptoms or risk factors identified. Assessment: 15:05 General: Appears in no apparent distress. uncomfortable, Behavior is calm, cooperative. tl4 Pain: Complains of pain in left lateral anterior chest and left lateral posterior chest. Neuro: Level of Consciousness is awake, alert, obeys commands, Oriented to person, place, time, situation, Gait is steady, Speech is normal, Facial symmetry appears normal. Neuro: Denies weakness dizziness, numbness headache. Cardiovascular: No deficits noted. Capillary refill < 3 seconds Patient's skin is warm and dry. Respiratory: Airway is patent Respiratory effort is even, unlabored, Respiratory pattern is regular, symmetrical, Breath sounds are clear bilaterally. GI: No deficits noted. No signs and/or symptoms were reported involving the gastrointestinal system. : No deficits noted. No signs and/or symptoms were reported regarding the genitourinary system. EENT: No deficits noted. No signs and/or symptoms were reported regarding the EENT system. Derm: No deficits noted. No signs and/or symptoms reported regarding the dermatologic system. Musculoskeletal: Reports pain in left lateral anterior chest and left lateral posterior chest. 16:43 Reassessment: No changes from previously documented assessment. Patient and/or family tl4 updated on plan of care and expected duration. Pain level reassessed. Patient is alert, oriented x 3, equal unlabored respirations, skin warm/dry/pink. Vital Signs: 14:38 BP 156 / 97; Pulse 83; Resp 18; Temp 97; Pulse Ox 98% on R/A; Weight 56.7 kg; Height 5 ph ft. 2 in. ; 15:06 BP 172 / 95; Pulse 82; Resp 18; Pulse Ox 100% on R/A; Pain 9/10; tl4 17:04 BP 164 / 97; Pulse 94; Resp 16; Temp 97.3(TE); Pulse Ox 100% on R/A; Pain 6/10; tl4 14:38 Body Mass Index 22.86 (56.70 kg, 157.48 cm) ph 15:06 Pain Scale: Adult tl4 17:04 Pain Scale: Adult tl4 [place] Coma Score: 15:06 Eye Response: spontaneous(4). Motor Response: obeys commands(6). Verbal Response: tl4 oriented(5). Total: 15. ED Course: 14:15 Patient arrived in ED. mr 14:16 Sharron Silva is Private Physician. mr 14:17 Shona Porter PA-C [facility]. sb4 14:17 Eric Zambrano MD is Attending Physician. sb4 14:41 Triage completed. ph 14:42 Arm band placed on. ph 14:53 Daniel Rodriguez, RN is Primary Nurse. tl4 15:07 Patient has correct armband on for positive identification. Bed in low position. Call tl4 light in reach. Side rails up X 1. Provided Education on: ED process. Client placed on continuous cardiac and pulse oximetry monitoring. NIBP monitoring applied. Door closed. Noise minimized. Lights dimmed. Moved to private room. Warm blanket given. 15:08 Diet: Patient given snack. Patient given ice chips. Patient given water. tl4 15:08 No provider procedures requiring assistance completed. Patient did not have IV access tl4 during this emergency room visit. 15:47 Ribs Left XRAY In Process Unspecified. EDMS 16:43 Diet: Patient given snack. Patient given water. turkey sandwich, chips, chocolate tl4 pudding, and lemon-[place] soda x 2. 16:50 Sharron Silva is Referral Physician. sb4 Administered Medications: 14:59 Drug: Hydrocodone-Acetaminophen PO (7.5 mg-325 mg) 1 tabs PO once Route: PO; tl4 16:44 Follow up: Response: No adverse reaction; Pain is decreased tl4 Medication: 15:06 VIS not applicable for this client. tl4 Outcome: 16:50 Discharge ordered by . sb4 17:03 Discharged to home ambulatory, with family, tl4 17:03 Condition: stable 17:03 Discharge instructions given to patient, family, Instructed on discharge instructions, follow up and referral plans. medication usage, Demonstrated understanding of instructions, follow-up care, medications, Prescriptions given X 1, 17:04 Patient left the ED. tl4 Signatures: Dispatcher [employer] EDUT Katherine Mckeon, Reg Reg mr Lucie Vaughn, RN RN Shona Pickens, PA-C PA-C sb4 Daniel Rodriguez RN RN tl4
[2023-09-03 17:33] VITALS: BP 172/95; TEMP 97; O2SAT 100
== END ==
LOC: ER 14:12
DX: S20.212A Contusion of left front wall of thorax, initial encounter (principal); F17.210 Nicotine dependence, cigarettes, uncomplicated
CPT/HCPCS: 99284

== ENCOUNTER 2023-12-20 15:08 | Emergency (ER) | payer OTHER ==
[2023-12-20] MEDS ORDERED: NA CHLORIDE 0.9% 1,000 ML ONE (15:57)
[2023-12-20] MEDS ORDERED: ONDANSETRON 4 MG/2 ML VIAL ONE (15:57)
[2023-12-20 16:10] LABS: Absolute Eosinophils 0.1 K/uL (0-0.5); Absolute Lymphocytes (CBC) 0.8 K/uL (0.7-4.9); Absolute Monocytes 0.3 K/uL (0.1-1.3); Basophils % 0.6 % (0-1.3); Eosinophils % 1.4 % (0-4.4); Hematocrit 41.6 % (36.0-45.0); Hemoglobin 13.8 g/dL (12.0-15.0); Lymphocytes % 19.6 % (15.3-44.8); MCH 30.7 pg (27.0-35.0); MCHC 33.3 g/dL (32.0-36.0); MCV 92.4 fL (80-100); MPV 6.8 fL (7.6-11.3); Monocytes % 7.7 % (3.3-12.3); Neutrophils % 70.7 % (41.7-73.7); Nucleated Red Blood Cells % 0.1 % (0-0); Platelets 226 thou/uL (152-406); Red Cell Distribution Width 13.7 % (12.1-15.2)
[2023-12-20 16:17] LABS: Specific Gravity 1.006 (1.005-1.030); Sqamous Epithelial <5 /HPF (None Seen); Urine Bacteria <20 /HPF (<20); Urine Bilirubin NEGATIVE (Negative); Urine Blood Negative (Negative); Urine Clarity Turbid (Clear); Urine Color Light-Yellow (Yellow); Urine Culture Reflex Order NOT NEEDED; Urine Glucose NEGATIVE (Negative); Urine Ketones NEGATIVE (Negative); Urine Microscopic Reflex YN ORDER UMIC; Urine Mucus Slight /HPF (None Seen); Urine Nitrite NEGATIVE (Negative); Urine Protein 1+ (Negative); Urine RBC <5 /HPF (None Seen); Urine Urobilinogen Normal (Normal); Urine WBC <5 /HPF (<5)
[2023-12-20] MEDS ORDERED: FAMOTIDINE 20 MG/2 ML VIAL IV ONE (16:24)
[2023-12-20] MEDS ORDERED: MORPHINE 4 MG/ML SYR ONE (16:24)
[2023-12-20 16:29] LABS: SARS-CoV-2 Antigen CONTROL BLUE LINE VIS/BG OK; SARS-CoV-2 Antigen Rapid Res Negative (Negative)
[2023-12-20 16:32] LABS: Albumin 4.1 g/dL (3.4-5.0); Anion Gap 6.9 mEq/L (5.0-15.0); Bilirubin Total 0.5 mg/dL (0.2-1.0); Globulin 4.1 g/dL (2.3-3.5); Potassium 3.9 mEq/L (3.5-5.1); Protein, Total 8.2 g/dL (6.4-8.2)
[2023-12-20 16:57] LABS: PT Prothrombin Time 11.8 SECONDS (9.4-12.5); Protime INR 1.07
--- NOTE | 2023-12-20 18:06 | RAD REPORT ---
EXAM DESCRIPTION: CTAbdomen Pelvis W Contrast - 12/20/2023 5:40 pm CLINICAL HISTORY: ABD PAIN COMPARISON: Abdomen Pelvis W Contrast dated 09/28/2020 TECHNIQUE: CT of the abdomen and pelvis was performed with IV contrast. All CT scans are performed using dose optimization technique as appropriate and may include automated exposure control or mA/KV adjustment according to patient size. FINDINGS: Lower chest: No acute abnormality. Liver: Nodular liver contour. Biliary: Cholecystectomy. Extrahepatic biliary duct dilatation may be related to the postcholecystect nery state. Stomach: No significant focal abnormality. Duodenum: No significant focal abnormality. Pancreas: No significant abnormality. Spleen: Splenomegaly . Adrenal: No suspicious lesions. Kidney/ureter: No hydronephrosis. No renal calculi. Retroperitoneum: No retroperitoneal adenopathy. Vascular: No aneurysm. Severe atherosclerosis. Bowel: No significant focal abnormality. Peritoneum: Mild ascites. Bladder: Grossly unremarkable. Reproductive: No adnexal masses. Bones: No acute fracture. Other: n/a IMPRESSION: No acute intra-abdominal or pelvic finding. Mild ascites which may be related to underlying cirrhosis. Cholecystectomy. Extrahepatic biliary ductal dilatation may be related to the postcholecystectomy sta te. Correlate with LFTs.
--- NOTE | 2023-12-20 18:13 | RAD REPORT ---
EXAM DESCRIPTION: RAD - Chest Single View - 12/20/2023 5:57 pm CLINICAL HISTORY: ABDOMINAL DISTENTION COMPARISON: Chest Pa And Lat (2 Views) dated 07/10/2019; CHEST SINGLE VIEW dated 05/26/2014; CHEST SIN GLE VIEW dated 05/23/2013 FINDINGS: Lines: None. Lungs: No evidence of edema or pneumonia. Pleural: No significant pleural effusions or pneumothorax. Cardiac: The heart size is within normal limits. Mediastinum: Within normal limits. Bones: No acute fractures. Other: Surgical clips in the right breast and axilla. IMPRESSION: No acute cardiopulmonary disease.
--- NOTE | 2023-12-20 18:30 | ER ---
Nurse's Notes [facility] [place] Name: Meg Ferrer Age: 68 yrs Sex: Female : 1955 Arrival Date: 12/20/2023 Time: 15:08 Bed 10 Private MD: Diagnosis: Nausea with vomiting, unspecified;Diarrhea, unspecified Presentation: 12/19 15:30 Chief complaint: Patient states: not feeling good for 3 days, diarrhea and nausea, ko1 vomiting started today. Coronavirus screen: At this time, the client does not indicate any symptoms associated with coronavirus-19. Ebola Screen: No symptoms or risks identified at this time. Initial Sepsis Screen: Does the patient meet any 2 criteria? No. Patient's initial sepsis screen is negative. Does the patient have a suspected source of infection? No. Patient's initial sepsis screen is negative. Risk Assessment: Do you want to hurt yourself or someone else? Patient reports no desire to harm self or others. Onset of symptoms is unknown. 15:30 Method Of Arrival: Ambulatory ko1 15:30 Acuity: AVINASH 3 ko1 Triage Assessment: 15:34 General: Appears in no apparent distress. ill, Behavior is calm, cooperative, ko1 appropriate for age. Pain: Denies pain. GI: Reports diarrhea, nausea, vomiting. Historical: - Allergies: 15:34 No Known Allergies; ko1 - Home Meds: 15:34 amlodipine 5 mg tab 1 tab once daily [Active]; gabapentin 800 mg Oral tab 1 tab 3 times ko1 per day [Active]; Mavyret 100-40 mg [Active]; tacrolimus 5 mg Oral capsule 2 caps every 12 hours [Active]; - PMHx: 15:34 Cirrhosis; esophageal varices; Hepatitis; Hypertension; LIVER CA; Tachycardia; ko1 - PSHx: 15:34 Repair of inguinal hernia; liver transplant; ko1 - Immunization history:: Adult Immunizations up to date. - Infectious Disease History:: Denies. - Social history:: Smoking status: Patient reports the use of cigarette tobacco products, denies chronic smoking, but will smoke occasionally. Screenin:18 [facility] ED Fall Risk Assessment (Adult) History of falling in the last 3 months, ld1 including since admission No falls in past 3 months (0 pts) Confusion or Disorientation No (0 pts) Intoxicated or Sedated No (0 pts) Impaired Gait No (0 pts) Mobility Assist Device Used No (0 pt) Altered Elimination No (0 pt) Score/Fall Risk Level 0 - 2 = Low Risk Oriented to surroundings, Maintained a safe environment, Educated pt \T\ family on fall prevention, incl call for assistance when getting out of bed, Assessed \T\ reinforced patient's understanding of fall precautions, Provided non-skid footwear, Hourly rounding (assess needs \T\ fall precautionary measures) done, Used ambulatory aids as needed (educated on \T\ assisted with), Used gait belt as appropriate. Abuse screen: Denies threats or abuse. Denies injuries from another. Nutritional screening: No deficits noted. Tuberculosis screening: No symptoms or risk factors identified. Assessment: 17:17 Reassessment: See triage assessment. General: Appears in no apparent distress. ld1 comfortable, Behavior is calm, cooperative, appropriate for age. Pain: Denies pain. Neuro: Level of Consciousness is awake, alert, obeys commands, Oriented to person, place, time, situation. GI: Abdomen is round non-distended, Reports diarrhea, nausea, vomiting. : No signs and/or symptoms were reported regarding the genitourinary system. Vital Signs: 15:30 BP 151 / 92; Pulse 93; Resp 16; Temp 97.7; Pulse Ox 97% ; ko1 17:17 BP 143 / 84; Pulse 89; Resp 18; Pulse Ox 99% on R/A; ld1 ED Course: 15:11 Patient arrived in ED. ra3 15:21 Praneeth Solano PA is PHCP. cp 15:21 Tin Arshad MD is Attending Physician. cp 15:33 Triage completed. ko1 15:34 Arm band placed on right wrist. Patient placed in an exam room, on a stretcher, on ko1 radiation monitor, on pulse oximetry, Patient notified of wait time. 15:41 Vanda Salgado, GIORGI is Primary Nurse. ld1 15:57 Urinalysis w/ reflexes Sent. ll1 16:04 Flu Sent. ld1 16:04 SARS RAPID Sent. ld1 16:04 Inserted saline lock: 20 gauge in right antecubital area, using aseptic technique. ld1 Blood collected. 16:36 Ptt, Activated Sent. ld1 16:36 PT-INR Sent. ld1 16:48 Ptt, Activated Sent. ko1 16:48 PT-INR Sent. ko1 16:48 Magnesium Sent. ko1 17:18 Patient has correct armband on for positive identification. Placed in gown. Bed in low ld1 position. Call light in reach. Side rails up X2. monitor and storage bin tender on. Pulse ox on. NIBP on. Door closed. Noise minimized. Warm blanket given. 17:18 No provider procedures requiring assistance completed. ld1 17:42 CT Abd/Pelvis - IV Contrast Only In Process Unspecified. EDMS 17:58 XRAY Chest (1 view) In Process Unspecified. EDMS 18:42 IV discontinued, intact, bleeding controlled, No redness/swelling at site. ko1 Administered Medications: 16:03 Drug: Ondansetron IVP 4 mg IVP once; over 2 minutes Route: IVP; Site: right antecubital;ld1 16:04 Drug: NS 0.9% IV 1000 ml IV at 1 bolus Per protocol; 1000 mL bolus Route: IV; Rate: 1 ld1 bolus; Site: right antecubital; 16:36 Drug: Famotidine IVP 20 mg IVP once; dilute with 10 mL 0.9% NaCl; give over 2 minutes ld1 Route: IVP; Site: right antecubital; 16:36 Drug: morphine IVP or IV 4 mg IVP once over 4 mins Route: IVP; Infused Over: 4 mins; ld1 Site: right antecubital; Medication: 17:18 VIS not applicable for this client. ld1 Outcome: 18:30 Discharge ordered by MD. xiang 18:42 Discharged to home ambulatory, with family, ko1 18:42 Condition: stable 18:42 Discharge instructions given to patient, family, Instructed on discharge instructions, follow up and referral plans. medication usage, Demonstrated understanding of instructions, follow-up care, medications, Prescriptions given X 1, 18:42 Patient left the ED. ko1 Signatures: Dispatcher [employer] EDMS Praneeth Solano PA PA cp Lewis, Lynsay RN RN ll1 Vanda Salgado RN RN ld1 Brooke Clarke RN RN ko1 Anette De Anda ra3
--- NOTE | 2023-12-20 18:30 | EDPHYS ---
Physician Documentation [facility] Name: Meg Ferrer Age: 68 yrs Sex: Female : 1955 Arrival Date: 12/20/2023 Time: 15:08 Bed 10 Private MD: ED Physician Tin Arshad HPI: 12/19 15:50 This 68 yrs old Female presents to ER via Ambulatory with complaints of cp Nausea/Vomiting/Diarrhea. 15:50 The patient presents to the emergency department with diarrhea, that is continuous. cp Onset: The symptoms/episode began/occurred 3 day(s) ago. Possible causes: flare up of bowel problem, liver disease. 15:50 Associated signs and symptoms: Pertinent positives: abdominal pain, anorexia, Pertinent cp negatives: constipation, fever, GI bleeding. Severity of symptoms: in the emergency department the symptoms are unchanged despite home interventions. Historical: - Allergies: 15:34 No Known Allergies; ko1 - Home Meds: 15:34 amlodipine 5 mg tab 1 tab once daily [Active]; gabapentin 800 mg Oral tab 1 tab 3 times ko1 per day [Active]; Mavyret 100-40 mg [Active]; tacrolimus 5 mg Oral capsule 2 caps every 12 hours [Active]; - PMHx: 15:34 Cirrhosis; esophageal varices; Hepatitis; Hypertension; LIVER CA; Tachycardia; ko1 - PSHx: 15:34 Repair of inguinal hernia; liver transplant; ko1 - Immunization history:: Adult Immunizations up to date. - Infectious Disease History:: Denies. - Social history:: Smoking status: Patient reports the use of cigarette tobacco products, denies chronic smoking, but will smoke occasionally. ROS: 15:55 Constitutional: Positive for poor PO intake, Negative for body aches, chills, fever, cp 15:55 Eyes: Negative for injury, pain, redness, and discharge, cp 15:55 Cardiovascular: Negative for chest pain, palpitations, 15:55 Respiratory: Negative for cough, shortness of breath, wheezing, 15:55 Abdomen/GI: Positive for abdominal pain, nausea and vomiting, diarrhea, Negative for constipation, black/tarry stool, rectal bleeding, 15:55 : Negative for urinary symptoms, 15:55 Neuro: Negative for altered mental status, dizziness, headache, syncope, weakness, 15:55 All other systems are negative, Exam: 16:00 Constitutional: The patient appears in no acute distress, alert, awake, cp non-diaphoretic, non-toxic, well developed, well nourished, uncomfortable, 16:00 Head/Face: Normocephalic, atraumatic. cp 16:00 Eyes: Periorbital structures: appear normal, Conjunctiva: normal, no exudate, no injection, Sclera: no appreciated abnormality, Lids and lashes: appear normal, bilaterally, 16:00 ENT: External ear(s): are unremarkable, Nose: is normal, Mouth: Lips: moist, Oral mucosa: pink and intact, moist, Posterior pharynx: is normal, airway is patent, no erythema, no exudate, 16:00 Chest/axilla: Inspection: normal, 16:00 Cardiovascular: Rate: normal, Rhythm: regular, Edema: is not appreciated, JVD: is not appreciated, 16:00 Respiratory: the patient does not display signs of respiratory distress, Respirations: normal, no use of accessory muscles, no retractions, labored breathing, is not present, Breath sounds: are clear throughout, no decreased breath sounds, no stridor, no wheezing, 16:00 Abdomen/GI: Inspection: abdomen appears normal, Bowel sounds: active, all quadrants, Palpation: soft, in all quadrants, mild abdominal tenderness, in the abdomen diffusely, rebound tenderness, is not appreciated, involuntary guarding, is not appreciated, 16:00 Back: pain, is absent, ROM is normal, 16:00 Neuro: Orientation: to person, place \T\ time. Mentation: is normal, Motor: moves all fours, strength is normal, Vital Signs: 15:30 BP 151 / 92; Pulse 93; Resp 16; Temp 97.7; Pulse Ox 97% ; ko1 17:17 BP 143 / 84; Pulse 89; Resp 18; Pulse Ox 99% on R/A; ld1 MDM: 15:54 Patient medically screened. 18:30 Data reviewed: vital signs, nurses notes, lab test result(s), radiologic studies, CT cp scan, and as a result, I will discharge patient. 18:30 I considered the following discharge prescriptions or medication management in the emergency department Medications were administered in the Emergency Department. See MAR. Special discussion: Based on the patient's Hx, exam, and Dx evaluation, there is no indication for emergent surgery or inpatient Tx. It is understood by the patient/guardian that if the Sx's persist or worsen they need to return immediately for re-evaluation. 12/19 15:43 Order name: CBC with Diff; Complete Time: 16:32 ld1 12/19 16:36 Interpretation: Normal except: MPV 6.8. cp 12/19 15:43 Order name: CMP; Complete Time: 16:35 ld1 12/19 16:36 Interpretation: Normal except: CRE 1.42; GFR 41; AST 45; ALT 62; GLOB 4.1; A/G 1.0. cp 12/19 15:43 Order name: Lipase; Complete Time: 16:35 ld1 12/19 18:17 Interpretation: Reviewed. cp 12/19 15:43 Order name: Urinalysis w/ reflexes; Complete Time: 16:32 ld1 12/19 16:37 Interpretation: Normal except: UCLA Turbid; UPROT 1+; UESTR 75. cp 12/19 15:57 Order name: SARS RAPID; Complete Time: 16:32 ll1 12/19 15:57 Order name: Flu; Complete Time: 16:32 ll1 12/19 16:07 Order name: Magnesium; Complete Time: 18:15 cp 12/19 18:15 Interpretation: Reviewed. cp 12/19 16:07 Order name: PT-INR; Complete Time: 18:15 cp 12/19 18:16 Interpretation: Reviewed. cp 12/19 16:07 Order name: Ptt, Activated; Complete Time: 18:15 cp 12/19 18:16 Interpretation: Reviewed. cp 12/19 16:39 Order name: CT Abd/Pelvis - IV Contrast Only; Complete Time: 18:15 cp 12/19 18:16 Interpretation: Report reviewed. cp 12/19 16:39 Order name: XRAY Chest (1 view); Complete Time: 18:15 cp 12/19 15:43 Order name: IV Saline Lock; Complete Time: 15:57 ld1 12/19 15:43 Order name: Labs collected and sent; Complete Time: 15:57 ld1 12/19 18:17 Order name: PO challenge; Complete Time: 18:21 cp Administered Medications: 16:03 Drug: Ondansetron IVP 4 mg IVP once; over 2 minutes Route: IVP; Site: right antecubital;ld1 16:04 Drug: NS 0.9% IV 1000 ml IV at 1 bolus Per protocol; 1000 mL bolus Route: IV; Rate: 1 ld1 bolus; Site: right antecubital; 16:36 Drug: Famotidine IVP 20 mg IVP once; dilute with 10 mL 0.9% NaCl; give over 2 minutes ld1 Route: IVP; Site: right antecubital; 16:36 Drug: morphine IVP or IV 4 mg IVP once over 4 mins Route: IVP; Infused Over: 4 mins; ld1 Site: right antecubital; Disposition Summary: 12/20/23 18:30 Discharge Ordered Notes: Location: Home cp Problem: new cp Symptoms: have improved cp Condition: Stable cp Diagnosis - Nausea with vomiting, unspecified cp - Diarrhea, unspecified cp Followup: cp - With: Private Physician - When: 2 - 3 days - Reason: Recheck today's complaints Discharge Instructions: - Discharge Summary Sheet cp - Food Choices to Help Relieve Diarrhea, Adult cp - Diarrhea, Adult cp - Nausea and Vomiting, Adult cp Forms: - Medication Reconciliation Form cp - Antibiotic Education cp - Prescription Opioid Use cp - Patient Portal Instructions cp - Leadership Thank You Letter cp Prescriptions: - ondansetron 8 mg Oral Tablet,disintegrating - take 1 tablet ORAL route every 12 hours; 20 tablet; Refills: 0, Product cp Selection Permitted Addendum: 12/22/2023 07:04 Co-signature as Attending Physician, Tin Arshad MD I reviewed the patient's care r n provided by the Advanced Practice Provider and agree with the diagnosis and treatment plan. Signatures: Dispatcher [employer] Tin Crum MD MD rn Page, Corey, PA PA cp Hilary Molina RN RN ll1 Vanda Salgado RN RN ld1 Brooke Clarke RN RN ko1 Corrections: (The following items were deleted from the chart) 12/19 15:43 15:43 CBC+H.LAB.BRZ ordered. EDMS EDMS 15:43 15:43 COMPREHENSIVE METABOLIC PANEL+C.LAB.BRZ ordered. EDMS EDMS 15:43 15:43 LIPASE+C.LAB.BRZ ordered. EDMS EDMS 15:43 15:43 Urinalysis+U.LAB.BRZ ordered. EDMS EDMS 15:58 15:58 SARS-COV-2 Antigen Rapid+I.LAB.BRZ ordered. EDMS EDMS 15:58 15:58 Influenza Screen (A \T\ B)+BA.LAB.BRZ ordered. EDMS EDMS 16:39 16:39 Chest Single View+RAD.RAD.BRZ ordered. EDMS EDMS
[2023-12-20 19:15] VITALS: BP 143/84; TEMP 97.7; O2SAT 99
== END 2023-12-20 18:42 | disposition home or self-care (01) ==
LOC: ER 15:08
DX: R11.2 Nausea with vomiting, unspecified (principal); R19.7 Diarrhea, unspecified; Z11.52 Encounter for screening for COVID-19; Z94.4 Liver transplant status
CPT/HCPCS: 85025; 81001; 36415; 83735; 85610; 85730; 83690; 80053; 87804 ×2; 74177; 71045; 96375; 96374; 99285; 87811; Q9967; J2405; J7030